=== PATIENT | male | born 1995 | race Caucasian/White ===

== ENCOUNTER 2017-11-18 15:25 | Emergency (ER) | payer SELFPAY ==
[~2017-11-18] VITALS: Ht 167.6 cm; Wt 74.0 kg
[2017-11-18] MEDS ORDERED: IBUPROFEN 600MG TABLET PO ONE (18:00)
[2017-11-18 18:34] VITALS: BP 111/87
== END 2017-11-18 18:38 | disposition home or self-care (01) ==
LOC: ER 16:45
DX: S30.0XXA Contusion of lower back and pelvis, initial encounter (principal); F17.200 Nicotine dependence, unspecified, uncomplicated; V43.52XA Car driver injured in collision with other type car in traffic accident, initial encounter; Y93.9 Activity, unspecified; Y92.411 Interstate highway as the place of occurrence of the external cause
CPT/HCPCS: 72100; 99284